=== PATIENT | female | born 1950 | race Caucasian/White ===

== ENCOUNTER → 2016-10-16 | Outpatient (CLI) | payer OTHER ==
[~2016-10-16] MED LIST: ALBU1AER9 INH; ALPR0.5T PO; ASPI81TA28 PO; BUPR-83 PO; CEPH500C2 PO; CHOL200010 PO; CYAN3INJ SC; ESCI1TAB10 PO; FLUT50SP14 NAE; HYDR12.56 PO; HYDR25TA4 PO; LEVO125T5 PO; MGN PO; MONT1TAB3 PO
[2016-10-16 10:51] LABS: HEMATOCRIT 41.1 % (37-47); MEAN CELL VOLUME 91.1 fL (80-100); MEAN CORPUSCULAR HEMOGLOBIN 28.8 pg (25-34); MEAN CORPUSCULAR HGB CONC 31.6 g/dl (32-36); MEAN PLATELET VOLUME 9.8 fL (7.4-10.4); PLATELET COUNT 212 K/uL (130-400); RED BLOOD COUNT 4.51 M/uL (4.2-5.4); WHITE BLOOD COUNT 6.27 K/uL (4.8-10.8)
== END | disposition home or self-care (01) ==
LOC: C.LABBC 08:31
PROVIDERS: ATTEND Orthopaedic Surgery Sports Medicine
DX: M17.0 Bilateral primary osteoarthritis of knee (principal); T84.84XA Pain due to internal orthopedic prosthetic devices, implants and grafts, initial encounter; X58.XXXA Exposure to other specified factors, initial encounter

== ENCOUNTER → 2016-10-30 | Outpatient (CLI) | payer OTHER ==
--- NOTE | 2016-10-30 15:40 | ECHOCARDIOGRAM REPORT ---
*NOTICE TO RECEIVING REPUBLICAN AGENCY This information is strictly Confidential and protected under [place] law. [place] law prohibits you from making any further disclosure of this information unless further disclosure is expressly permitted by the written consent of the person to whom it pertains or is authorized by law. A general authorization for the release of medical or other information is not sufficient for this purpose. Hospital accepts no responsibility if the information is made available to any other person, INCLUDING THE PATIENT. Interpretation Summary * Name: VALERIANO LEON Study Date: 10/30/2016 01:37 PM BP: 143/71 mmHg * Patient Location: [facility] HR: 67 * : 1950 (M/d/yyyy) Gender: Female Height: 56 in * Age: 66 yrs Ethnicity: [place] Weight: 305 lb * Ordering Physician: Roxanna Bentley * Referring Physician: Danuta Connelly * Performed By: Simona Lincoln RDCS * * Reason For Study: CHEST PAIN, PALPITATIONS, SOB * BSA: 2.1 m2 * The study was technically adequate. * Compared to prior study, there is no significant change. * -- Conclusions -- * Ejection Fraction = 55-60%. * There is mild concentric left ventricular hypertrophy. * Grade I diastolic dysfunction, (abnormal relaxation pattern). * There is trace mitral regurgitation. Procedure Details * A complete two-dimensional transthoracic echocardiogram was performed (2D, M-mode, Doppler and color flow Doppler). Left Ventricle * The left ventricle is normal in size. * There is mild concentric left ventricular hypertrophy. * Ejection Fraction = 55-60%. * Left ventricular systolic function is normal. * The left ventricular wall motion is normal. Right Ventricle * The right ventricle is normal size. * The right ventricular systolic function is normal as assessed by tricuspid annular plane systolic excursion (TAPSE) (normal >1.5 cm). Atria * The left atrium is mildly dilated. * Right atrial size is normal. * There is no evidence of atrial septal defect, but resolution does not allow assessment for a patent foramen ovale. Mitral Valve * There is moderate mitral annular calcification. * There is no mitral valve stenosis. * There is trace mitral regurgitation. Tricuspid Valve * The tricuspid valve is not well visualized. * There is no tricuspid stenosis. * Significant tricuspid regurgitation is absent. Aortic Valve * The aortic valve is trileaflet. * Aortic stenosis is absent. * There is no significant aortic regurgitation. Pulmonic Valve * The pulmonary valve is not well seen, but the Doppler examination is normal without significant regurgitation or stenosis. Great Vessels * The aortic root is normal size. Pericardium/Pleural * There is no pericardial effusion. Great Vessels * Normal inferior vena cava diameter and respiratory variation suggests normal central venous pressure. Left Ventricular Diastolic Function * Grade I diastolic dysfunction, (abnormal relaxation pattern). MMode 2D Measurements and Calculations IVSd 1.2 cm IVSs 1.9 cm LVIDd 4.5 cm LVIDs 3.1 cm LVPWd 1.3 cm LVPWs 2.8 cm IVS/LVPW 0.91 FS 31.3 % EDV(Teich) 92.4 ml ESV(Teich) 37.7 ml EF(Teich) 59.2 % EDV(cubed) 91.1 ml ESV(cubed) 29.6 ml EF(cubed) 67.5 % % IVS thick 60.7 % % LVPW thick 110.9 % LV mass(C)d 209.9 grams LV mass(C)dI 98.8 grams/m\S\2 LV mass(C)s 365.0 grams LV mass(C)sI 171.8 grams/m\S\2 SV(Teich) 54.7 ml SI(Teich) 25.8 ml/m\S\2 SV(cubed) 61.5 ml SI(cubed) 29.0 ml/m\S\2 LA dimension 3.5 cm LVAd ap4 30.5 cm\S\2 LVLd ap4 7.4 cm EDV(MOD-sp4) 105.0 ml LVAs ap4 18.5 cm\S\2 LVLs ap4 6.4 cm ESV(MOD-sp4) 45.2 ml EF(MOD-sp4) 57.0 % LVAd ap2 26.2 cm\S\2 LVLd ap2 7.1 cm EDV(MOD-sp2) 82.6 ml LVAs ap2 15.1 cm\S\2 LVLs ap2 6.1 cm ESV(MOD-sp2) 32.8 ml EF(MOD-sp2) 60.3 % SV(MOD-sp4) 59.8 ml SI(MOD-sp4) 28.2 ml/m\S\2 SV(MOD-sp2) 49.8 ml SI(MOD-sp2) 23.4 ml/m\S\2 Doppler Measurements and Calculations MV E max genaro 100.4 cm/sec MV A max genaro 107.2 cm/sec MV E/A 0.94 MV dec time 0.20 sec Ao V2 max 124.1 cm/sec Ao max PG 6.2 mmHg Ao max PG (full) 1.5 mmHg LV V1 max PG 4.6 mmHg LV V1 max 107.7 cm/sec
== END | disposition home or self-care (01) ==
LOC: C.CPL 13:27
PROVIDERS: ATTEND Family Medicine
DX: R06.02 Shortness of breath (principal); R07.9 Chest pain, unspecified; R00.2 Palpitations

== ENCOUNTER → 2016-11-23 | Outpatient (CLI) | payer OTHER ==
[2016-11-23 12:45] LABS: POTASSIUM 3.9 mmol/L (3.5-5.1)
== END | disposition home or self-care (01) ==
LOC: C.LAB 11:08
PROVIDERS: ATTEND Physician Assistant
DX: I10 Essential (primary) hypertension (principal); K21.9 Gastro-esophageal reflux disease without esophagitis; C03.9 Malignant neoplasm of gum, unspecified

== ENCOUNTER → 2017-04-20 | Outpatient (CLI) | payer OTHER ==
[2017-04-20 13:32] LABS: MEAN CELL VOLUME 89.1 fL (80-100); MEAN CORPUSCULAR HEMOGLOBIN 29.1 pg (25-34); MEAN CORPUSCULAR HGB CONC 32.7 g/dl (32-36); MEAN PLATELET VOLUME 10.6 fL (7.4-10.4); PLATELET COUNT 189 K/uL (130-400); WHITE BLOOD COUNT 6.22 K/uL (4.8-10.8)
== END | disposition home or self-care (01) ==
LOC: C.LABBC 09:56
PROVIDERS: ATTEND Orthopaedic Surgery Sports Medicine
DX: T84.89XA Other specified complication of internal orthopedic prosthetic devices, implants and grafts, initial encounter (principal); M17.10 Unilateral primary osteoarthritis, unspecified knee; Y83.1 Surgical operation with implant of artificial internal device as the cause of abnormal reaction of the patient, or of later complication, without mention of misadventure at the time of the procedure

== ENCOUNTER → 2017-10-16 | Outpatient (CLI) | payer OTHER ==
[2017-10-16 13:31] LABS: ALBUMIN 3.3 gm/dl (3.4-5.0); ALT/SGPT 23 U/L (12-78); AST/SGOT 20 U/L (15-37); BLOOD UREA NITROGEN 21 mg/dl (7-18); CALCIUM 8.5 mg/dl (8.5-10.1); CARBON DIOXIDE 31 mmol/L (21-32); GLUCOSE 92 mg/dl (70-99); POTASSIUM 3.8 mmol/L (3.5-5.1); SODIUM 137 mmol/L (136-145)
[2017-10-16 13:33] LABS: ALKALINE PHOSPHATASE 153 U/L (45-117)
== END | disposition home or self-care (01) ==
LOC: C.LAB 12:00
PROVIDERS: ATTEND Physician Assistant
DX: E87.6 Hypokalemia (principal); D51.9 Vitamin B12 deficiency anemia, unspecified; E16.2 Hypoglycemia, unspecified; E55.9 Vitamin D deficiency, unspecified

== ENCOUNTER 2017-10-27 11:18 | Observation (INO) | payer OTHER ==
[~2017-10-27] VITALS: Ht 160 cm; Wt 137.2 kg
[2017-10-27] MEDS ORDERED: ASPIRIN 324 MG CHEW PO STA (11:33)
--- NOTE | 2017-10-27 12:00 | DIAGNOSTIC IMAGING REPORT ---
CHEST ONE VIEW PORTABLE CLINICAL HISTORY: 67 years-old Female presenting with cp. TECHNIQUE: Portable upright AP view of the chest was obtained. COMPARISON: 09/26/2011. FINDINGS: Atherosclerosis of the aortic arch. Mild tortuosity of the descending thoracic aorta, unchanged. Cardiac silhouette top normal in size. Mild pulmonary vascular prominence. No focal opacity. No large effusion or pneumothorax. Degenerative changes of the shoulders an spine. Upper abdomen normal. IMPRESSION: 1. Mild pulmonary vascular prominence could suggest mild volume overload. No other evidence of acute cardiopulmonary disease. Electronically signed by: Derick Baltazar M.D. 10/27/2017 11:58 AM Dictated Date/Time: 10/27/2017 11:57 AM
[2017-10-27 12:01] LABS: BASO % 0.5 %; BASO ABS # 0.03 K/uL (0-0.2); EOS % 3.7 %; EOS ABS # 0.22 K/uL (0-0.5); HEMATOCRIT 39.7 % (37-47); HEMOGLOBIN 13.1 g/dL (12.0-16.0); IG# 0.01 K/uL (0.00-0.02); LYMPH ABS # 1.65 K/uL (1.2-3.4); MEAN CELL VOLUME 88.2 fL (80-100); MEAN CORPUSCULAR HEMOGLOBIN 29.1 pg (25-34); MEAN PLATELET VOLUME 9.7 fL (7.4-10.4); MONO % 5.8 %; MONO ABS # 0.34 K/uL (0.11-0.59); NEUT % 61.8 %; NEUT ABS # 3.65 K/uL (1.4-6.5); PLATELET COUNT 192 K/uL (130-400); RED CELL DISTRIBUTION WIDTH SD 45.5 fL (36.4-46.3)
[2017-10-27 12:10] LABS: PTT PATIENT 25.2 SECONDS (21.0-31.0)
[2017-10-27 12:16] LABS: CALCIUM 8.8 mg/dl (8.5-10.1); CREATININE 0.74 mg/dl (0.60-1.20); POTASSIUM 4.2 mmol/L (3.5-5.1)
[2017-10-27] MEDS ORDERED: FLUT0.15 NAE (12:24)
[2017-10-27] MEDS ORDERED: ALBU18002 INH (12:24)
[2017-10-27] MEDS ORDERED: CYNI1000 SC (12:24)
[2017-10-27] MEDS ORDERED: MAGN250T8 PO (12:24)
[2017-10-27] MEDS ORDERED: FURO20TA PO (12:24)
[2017-10-27] MEDS ORDERED: BUPRTAB PO (12:24)
[2017-10-27 13:36] VITALS: O2SAT 96; Ht 160 cm; Wt 137.2 kg
--- NOTE | 2017-10-27 13:51 | History and Physical ---
History & Physical Date & Time of Service: October 27, 2017 at 13:51 Chief Complaint: Chest Pain Primary Care Physician: Francie Longoria.Juliann PA-C History of Present Illness Source: patient This is a 67-year-old female with past medical history of high blood pressure hyperlipidemia type 2 diabetes, presented plane of chest pain started since yesterday, heart pain feels like muscle spasm with radiation to left shoulder blade and left-sided neck Not associated to any active activity Dizzy spell or lightheadedness No prior history of coronary artery disease No family history of premature CAD, patient is non-smoker In the ER patient was chest pain-free Twelve-lead EKG shows no evidence of any acute ischemic Initial troponin negative Patient will be observed overnight in telemetry for cardiac workup Past Medical/Surgical History Medical Problems: (1) Anxiety (2) Anxiety (3) Anxiety State Nos (4) Body Mass Index 50.0-59.9, Adult (5) Chest pain (6) Dehydration (7) Diab Nenita Wo Compl, Type Ii Or Unspec Type, Not Uncntrld (8) Gastroenteritis (9) History of left knee replacement (10) Hyperlipidemia Nec/Nos (11) Hypertension Nos (12) Hypothyroidism Nos (13) Left knee pain (14) Morbid Obesity Social History Smoking Status: Never Smoker Drug Use: none Marital Status: Housing status: lives with family Immunizations History of Influenza Vaccine: Yes Influenza Vaccine Date: Mar 30, 2009 History of Tetanus Vaccine?: Yes Tetanus Immunization Date: Nov 24, 2007 History of Pneumococcal: Yes Pneumococcal Date: Jun 16, 2009 History of Hepatitis B Vaccine: No Multi-Drug Resistant Organisms History of MDRO: No Allergies Coded Allergies: Penicillins (Verified Allergy, Mild, SWELLING BUT NO RESPIRATORY PROBLEMS , 10/27/17) Gabapentin (Verified Allergy, Unknown, UNKNOWN, 10/27/17) PER PT CAUSED HER TO FEEL LIGHTHEADED. Tramadol (Verified Allergy, Unknown, SWELLING, 10/27/17) Zoster Vaccine Live (Verified Allergy, Unknown, UNKNOWN, 10/27/17) CAUSED REDNESS/SWELLING OF INJECTION SITE Home Medications Scheduled Alprazolam (Xanax), 0.5 MG PO QAM Aspirin (Aspirin Ec), 81 MG PO DAILY Bupropion Hcl (Wellbutrin Xl), 1 TAB PO DAILY Cholecalciferol (Vitamin D), 2,000 UNIT PO QAM Cyanocobalamin (Cyanocobalamin), 1 DOSE SC MONTHLY Escitalopram Oxalate (Lexapro), 20 MG PO QAM Furosemide (Lasix), 20 MG PO DAILY Levothyroxine Sodium (Levothyroxine Sodium), 125 MCG PO DAILY Magnesium Oxide (Mg Supplement (Magnesium), 250 MG PO DAILY Scheduled PRN Albuterol Sulfate (Proair Respiclick), 2 PUFFS INH DAILY PRN for Wheezing Fluticasone Propionate (Nasal) (Flonase Allergy Relief), 2 SPRAYS AMELIA DAILY PRN for SEASONAL ALLERGIES Montelukast Sodium (Singulair), 10 MG PO DAILY PRN for SEASONAL ALLERGIES Review of Systems Constitutional: + weakness, + fatigue Respiratory: No cough, No sputum, No wheezing, No shortness of breath, No dyspnea on exertion, No dyspnea at rest, No hemoptysis, No problem reported Cardiovascular: + chest pain (Intermittent sharp/spasm on the left chest wall radiating to left arm and left neck), No orthopnea, No PND, No edema, No claudication, No palpitations, No problem reported Abdomen: No pain, No nausea, No vomiting, No diarrhea, No constipation, No GI bleeding, No problem reported Musculoskeletal: + swelling (Chronic bilateral ankle swelling), No joint pain, No muscle pain, No calf pain, No problem reported Genitourinary - Female: No dysuria, No urinary frequency, No urinary urgency, No urinary incontinence, No urinary retention, No hematuria, No dysmenorrhea, No menorrhagia, No metrorrhagia, No rash, No vaginal bleeding, No vaginal discharge, No vaginal itching, No vulvodynia, No , No problem reported Neurologic: No memory loss, No paralysis, No weakness, No numbness/tingling, No vertigo, No balance problems, No problem reported Psychiatric: + anxiety Physical Exam Vital Signs Date Time Temp Pulse Resp B/P (MAP) Pulse Ox O2 Delivery O2 Flow Rate FiO2 10/27/17 13:09 64 18 172/82 96 Room Air 10/27/17 12:09 64 10/27/17 11:50 77 18 147/82 95 Room Air 10/27/17 11:36 98 Room Air 10/27/17 11:22 36.6 83 22 141/75 98 Room Air General Appearance: no apparent distress, + mild distress Head: atraumatic Eyes: normal inspection, PERRL, EOMI, sclerae normal ENT: normal ENT inspection Neck: thyroid normal, no JVD, no carotid bruits, trachea midline Respiratory/Chest: chest non-tender, lungs clear, normal breath sounds, no respiratory distress Cardiovascular: regular rate, rhythm, no JVD, no murmur, normal peripheral pulses Abdomen/GI: normal bowel sounds, non tender, soft Extremities/Musculoskelatal: + pedal edema (Trace bilateral pedal edema) Neurologic/Psych: no motor/sensory deficits, alert, normal mood/affect, oriented x 3 Diagnostics Laboratory Results Results Past 24 Hours Test 10/27/17 11:45 10/27/17 11:52 10/27/17 13:21 Range/Units White Blood Count 5.90 4.8-10.8 K/uL Red Blood Count 4.50 4.2-5.4 M/uL Hemoglobin 13.1 12.0-16.0 g/dL Hematocrit 39.7 37-47 % Mean Corpuscular Volume 88.2 80-100 fL Mean Corpuscular Hemoglobin 29.1 25-34 pg Mean Corpuscular Hemoglobin Concent 33.0 32-36 g/dl Platelet Count 192 130-400 K/uL Mean Platelet Volume 9.7 7.4-10.4 fL Neutrophils (%) (Auto) 61.8 % Lymphocytes (%) (Auto) 28.0 % Monocytes (%) (Auto) 5.8 % Eosinophils (%) (Auto) 3.7 % Basophils (%) (Auto) 0.5 % Neutrophils # (Auto) 3.65 1.4-6.5 K/uL Lymphocytes # (Auto) 1.65 1.2-3.4 K/uL Monocytes # (Auto) 0.34 0.11-0.59 K/uL Eosinophils # (Auto) 0.22 0-0.5 K/uL Basophils # (Auto) 0.03 0-0.2 K/uL RDW Standard Deviation 45.5 36.4-46.3 fL RDW Coefficient of Variation 14.0 11.5-14.5 % Immature Granulocyte % (Auto) 0.2 % Immature Granulocyte # (Auto) 0.01 0.00-0.02 K/uL Prothrombin Time 10.4 9.0-12.0 SECONDS Prothromb Time International Ratio 1.0 0.9-1.1 Activated Partial Thromboplast Time 25.2 21.0-31.0 SECONDS Partial Thromboplastin Ratio 1.0 Sodium Level 139 136-145 mmol/L Potassium Level 4.2 3.5-5.1 mmol/L Chloride Level 102 98-107 mmol/L Carbon Dioxide Level 34 21-32 mmol/L Anion Gap 3.0 3-11 mmol/L Blood Urea Nitrogen 21 7-18 mg/dl Creatinine 0.74 0.60-1.20 mg/dl Est Creatinine Clear Calc Drug Dose 100.0 ml/min Estimated GFR () 97.2 Estimated GFR (Non- 83.8 BUN/Creatinine Ratio 28.8 10-20 Random Glucose 93 70-99 mg/dl Calcium Level 8.8 8.5-10.1 mg/dl Bedside Troponin I < 0.030 0-0.045 ng/ml Diagnostic Radiology PORTABLE CHEST X-RAY impression: Mild pulmonary vascular prominence could suggest mild volume overload: No other evidence of acute cardiopulmonary disease EKG Twelve-lead EKG: Normal sinus rhythm no ST-T wave change Impression Assessment and Plan This 67-year-old female with history of depression, anxiety, dyslipidemia, status post gastric bypass/history of uterine cancer on remission, history of factor V Leiden mutation Presented to ER with complaint of intermittent sharp chest pain CHEST PAIN/ATYPICAL FOR ANGINA -Presents with sharp intermittent chest pain, not associated with nausea diaphoresis or dizziness spell Initial cardiac workup negative Had a dobutamine cardiac stress test done in 09/09/2008: Was normal study knows evidence of stress-induced ischemia Resting echo on 10/30/2016: EF of 55-60%, left ventricular systolic function is normal, the left ventricle wall motion is normal Ordered for serial cardiac markers, resting echo in the morning Continue aspirin 81 mg daily Patient been chest pain-free since arrival to the ED Will benefit with outpatient cardiac dobutamine stress test HYPOTHYROIDISM Continue levothyroxine Ordered for TSH level HYPERLIPIDEMIA Diet-controlled Fasting lipid panel in a.m. MORBID OBESITY BMI more than 53 History of gastric bypass surgery, patient regained weight after Counseled for exercise and heart healthy diet ANXIETY DISORDER Continue outpatient dose of alprazolam DEPRESSION Continue on SSRI escitalopram/Lexapro 20 mg daily HISTORY OF FACTOR V LEIDEN MUTATION No prior history of blood clots or thromboembolic Charge from hematology service as no further follow-up needed Full code DVT prophylaxis Moderate to high risk secondary to body habitus Subcu heparin Is encouraged to ambulate Disposition Expected to be discharged home if initial cardiac markers are negative Will need outpatient dobutamine cardiac stress test Advanced Directives Existing Living Will: No Existing Power of Information Services Assistant: No Resuscitation Status FULL RESUSCITATION VTE Prophylaxis Risk Level: Moderate Given or contraindicated: Unfractionated heparin SQ
[2017-10-27] MEDS ORDERED: FUROSEMIDE 20 MG TAB PO ONE (13:52)
[2017-10-27] MEDS ORDERED: METOPROLOL TARTRATE 25 MG TAB PO ONE (13:55)
[2017-10-27] MEDS ORDERED: MAGNESIUM HYDROXIDE SUSP 30 ML UDC PO PRN (14:00)
[2017-10-27] MEDS ORDERED: ALBUTEROL HFA 8 GM INHALER INH PRN (14:00)
[2017-10-27] MEDS ORDERED: NITROGLYCERIN 0.4 MG SL PER TAB CHARGE SL PRN (14:00)
[2017-10-27] MEDS ORDERED: MONTELUKAST SOD 10 MG TAB PO PRN (14:00)
[2017-10-27] MEDS ORDERED: ACETAMINOPHEN 325 MG TAB PO PRN (14:00)
[2017-10-27] MEDS ORDERED: POLYETHYLENE (MIRALAX) 17 GM PACK PO PRN (14:00)
[2017-10-27] MEDS ORDERED: ONDANSETRON INJ 2 MG/ML 2 ML VIAL IV PRN (14:00)
[2017-10-27] MEDS ORDERED: FLUTICASONE PROPIONATE NA SPR 16 GM BTL NAE PRN (14:00)
[2017-10-27] MEDS ORDERED: ALUMINUM/MAGNESIUM/SIMETH (MAALOX MAX) 30 ML UDC PO PRN (14:00)
[2017-10-27] MEDS ORDERED: IV FLUIDS COMPLETED PRN (14:15)
[2017-10-27 14:34] VITALS: BP 154/77; PULSE 69; TEMP 36.6; O2SAT 95
[2017-10-27 15:33] VITALS: BP 124/71; PULSE 69; TEMP 36.7; O2SAT 97
--- NOTE | 2017-10-27 16:36 | EMERGENCY ROOM VISIT NOTE ---
History Report prepared by Juan: Raiza Rodriguez Under the Supervision of: Dr. Larry Robles M.D. First contact with patient: 11:20 Chief Complaint: CHEST PAIN Stated Complaint: CHEST PAIN History of Present Illness The patient is a 67 year old female who presents to the Emergency Room with complaints of intermittent chest pain beginning yesterday afternoon. She describes her pain as "a mini muscle spasm" and it radiates to her shoulder blade and left neck. Lying down and being inactive alleviates her pain and it does not hurt if she moves her arm or shoulder. She has a dry cough and nausea but denies any SOB, sweating, nausea, abdominal pain, or urinary symptoms. The patient also has bilateral leg swelling but states it is chronic. She denies any leg pain. Source of History: patient Onset: yesterday afternoon Position: chest Symptom Intensity: mild Quality: other ("a mini muscle spasm") Timing: intermittent Modifying Factors (Relieving): other (Lying down and being inactive ) Associated Symptoms: + cough (dry), + nausea, No diaphoresis, No SOB, No abdominal pain, No urinary symptoms Review of Systems See HPI for pertinent positives & negatives. A total of 10 systems reviewed and were otherwise negative. Past Medical & Surgical Medical Problems: (1) Anxiety State Nos (2) Body Mass Index 50.0-59.9, Adult (3) Chest pain (4) Diab Nenita Wo Compl, Type Ii Or Unspec Type, Not Uncntrld (5) Hyperlipidemia Nec/Nos (6) Hypertension Nos (7) Hypothyroidism Nos (8) Morbid Obesity Family History No pertinent family history Social History Smoking Status: Never Smoker Alcohol Use: none Drug Use: none Marital Status: Current/Historical Medications Scheduled Alprazolam (Xanax), 0.5 MG PO QAM Aspirin (Aspirin Ec), 81 MG PO DAILY Bupropion Hcl (Wellbutrin Xl), 1 TAB PO DAILY Cholecalciferol (Vitamin D), 2,000 UNIT PO QAM Cyanocobalamin (Cyanocobalamin), 1 DOSE SC MONTHLY Escitalopram Oxalate (Lexapro), 20 MG PO QAM Furosemide (Lasix), 20 MG PO DAILY Levothyroxine Sodium (Levothyroxine Sodium), 125 MCG PO DAILY Magnesium Oxide (Mg Supplement (Magnesium), 250 MG PO DAILY Scheduled PRN Albuterol Sulfate (Proair Respiclick), 2 PUFFS INH DAILY PRN for Wheezing Fluticasone Propionate (Nasal) (Flonase Allergy Relief), 2 SPRAYS AMELIA DAILY PRN for SEASONAL ALLERGIES Montelukast Sodium (Singulair), 10 MG PO DAILY PRN for SEASONAL ALLERGIES Allergies Coded Allergies: Penicillins (Verified Allergy, Mild, SWELLING BUT NO RESPIRATORY PROBLEMS , 10/27/17) Gabapentin (Verified Allergy, Unknown, UNKNOWN, 10/27/17) PER PT CAUSED HER TO FEEL LIGHTHEADED. Tramadol (Verified Allergy, Unknown, SWELLING, 10/27/17) Zoster Vaccine Live (Verified Allergy, Unknown, UNKNOWN, 10/27/17) CAUSED REDNESS/SWELLING OF INJECTION SITE Physical Exam Vital Signs Date Time Temp Pulse Resp B/P (MAP) Pulse Ox O2 Delivery O2 Flow Rate FiO2 10/27/17 13:18 78 17 10/27/17 13:10 172/82 10/27/17 13:09 64 18 172/82 96 Room Air 10/27/17 12:48 67 16 97 10/27/17 12:18 66 14 99 10/27/17 12:09 64 10/27/17 11:50 77 18 147/82 95 Room Air 10/27/17 11:38 147/82 10/27/17 11:36 98 Room Air 10/27/17 11:22 36.6 83 22 141/75 98 Room Air Physical Exam Constitutional: Vital signs reviewed. Eyes: Pupils are equal round reactive to light. Conjunctiva are noninjected. ENT: Pharynx is clear without erythema or exudate. Mucous membranes are moist. Neck supple without meningeal signs. Respiratory: Clear to auscultation bilaterally. Breath sounds are equal bilaterally. Cardiovascular: Regular rate and rhythm. No rubs or gallops. GI: Soft, nondistended and nontender. Bowel sounds are present. Musculoskeletal: No peripheral edema. No lower extremity tenderness. Integumentary: No cyanosis. Neurological: The patient is awake and alert. No focal deficits. Psychiatric: Normal affect. Medical Decision & Procedures ER Provider Diagnostic Interpretation: Radiology results as stated below per my review and the radiologist's interpretation: CHEST ONE VIEW PORTABLE CLINICAL HISTORY: 67 years-old Female presenting with cp. TECHNIQUE: Portable upright AP view of the chest was obtained. COMPARISON: 09/26/2011. FINDINGS: Atherosclerosis of the aortic arch. Mild tortuosity of the descending thoracic aorta, unchanged. Cardiac silhouette top normal in size. Mild pulmonary vascular prominence. No focal opacity. No large effusion or pneumothorax. Degenerative changes of the shoulders an spine. Upper abdomen normal. IMPRESSION: 1. Mild pulmonary vascular prominence could suggest mild volume overload. No other evidence of acute cardiopulmonary disease. Electronically signed by: Derick Baltazar M.D. 10/27/2017 11:58 AM Laboratory Results 10/27/17 11:45 Red Blood Count 4.50, Mean Corpuscular Volume 88.2, Mean Corpuscular Hemoglobin 29.1, Mean Corpuscular Hemoglobin Concent 33.0, Mean Platelet Volume 9.7, Neutrophils (%) (Auto) 61.8, Lymphocytes (%) (Auto) 28.0, Monocytes (%) (Auto) 5.8, Eosinophils (%) (Auto) 3.7, Basophils (%) (Auto) 0.5, Neutrophils # (Auto) 3.65, Lymphocytes # (Auto) 1.65, Monocytes # (Auto) 0.34, Eosinophils # (Auto) 0.22, Basophils # (Auto) 0.03 10/27/17 11:45 Test 10/27/17 11:45 10/27/17 11:52 White Blood Count 5.90 K/uL (4.8-10.8) Red Blood Count 4.50 M/uL (4.2-5.4) Hemoglobin 13.1 g/dL (12.0-16.0) Hematocrit 39.7 % (37-47) Mean Corpuscular Volume 88.2 fL (80-100) Mean Corpuscular Hemoglobin 29.1 pg (25-34) Mean Corpuscular Hemoglobin Concent 33.0 g/dl (32-36) Platelet Count 192 K/uL (130-400) Mean Platelet Volume 9.7 fL (7.4-10.4) Neutrophils (%) (Auto) 61.8 % Lymphocytes (%) (Auto) 28.0 % Monocytes (%) (Auto) 5.8 % Eosinophils (%) (Auto) 3.7 % Basophils (%) (Auto) 0.5 % Neutrophils # (Auto) 3.65 K/uL (1.4-6.5) Lymphocytes # (Auto) 1.65 K/uL (1.2-3.4) Monocytes # (Auto) 0.34 K/uL (0.11-0.59) Eosinophils # (Auto) 0.22 K/uL (0-0.5) Basophils # (Auto) 0.03 K/uL (0-0.2) RDW Standard Deviation 45.5 fL (36.4-46.3) RDW Coefficient of Variation 14.0 % (11.5-14.5) Immature Granulocyte % (Auto) 0.2 % Immature Granulocyte # (Auto) 0.01 K/uL (0.00-0.02) Prothrombin Time 10.4 SECONDS (9.0-12.0) Prothromb Time International Ratio 1.0 (0.9-1.1) Activated Partial Thromboplast Time 25.2 SECONDS (21.0-31.0) Partial Thromboplastin Ratio 1.0 D-Dimer 550 ug/L FEU (0-500) Anion Gap 3.0 mmol/L (3-11) Est Creatinine Clear Calc Drug Dose 100.0 ml/min Estimated GFR () 97.2 Estimated GFR (Non- 83.8 BUN/Creatinine Ratio 28.8 (10-20) Calcium Level 8.8 mg/dl (8.5-10.1) Pro-B-Type Natriuretic Peptide 283 pg/ml (0-900) Thyroid Stimulating Hormone (TSH) 0.383 uIu/ml (0.300-4.500) Bedside Troponin I < 0.030 ng/ml (0-0.045) Laboratory results as reviewed by me. Medications Administered Medications (Trade) Dose Ordered Sig/Jerome Route Start Time Stop Time Status Last Admin Dose Admin Aspirin (Aspirin Chew) 324 mg NOW STAT PO 10/27/17 11:33 10/27/17 11:35 DC 10/27/17 11:43 324 MG ECG Per My Interpretation Indication: chest pain Rate (beats per minute): 82 Rhythm: normal sinus Findings: other (no ST elevations, no PVCs ) ED Course 1125: The patient was evaluated in room C7. A complete history and physical exam was performed. 1133: Ordered Aspirin 324 mg PO 1232: She is not having any chest discomfort. I recommended hospitalization 1229: I discussed the patient's case with Dr. Waldrop, [facility]ist. Medical Decision This is a 67-year-old female presents with chest pain. Differential diagnosis includes unstable angina, [place], pleurisy, pneumonia, GERD. I did perform a limited focused review of portions of the patient's old chart on the electronic medical record. The patient has had no recent pertinent visits to this hospital. I did evaluate the patient as noted above. Patient is presenting with chest pain. She states it is worse with exertion. IV access was established. The patient was placed on a continuous monitor car operator. I did order and personally review the patient's 12-lead EKG and chest x-ray as described above. Her twelve -lead EKG does not demonstrate any acute ischemia. I did order and review the patient's blood work as noted in the electronic medical record. Initial troponin is negative. I did discuss the test results with the patient. I did recommend hospitalization for repeat cardiac enzymes and further evaluation. I did treat patient with aspirin. I did discuss case with the hospitalist and trimming caser. Medication Reconcilliation Current Medication List: was personally reviewed by me Blood Pressure Screening Patient's blood pressure: Elevated blood pressure Blood pressure disposition: Referred to PCP Consults Time Called: 1237 Consulting Physician: Thomas Scruggs Returned Call: 1229 I discussed the patient's case with Thomas Scruggs. She will further evaluate the patient. Impression Primary Impression: Exertional chest pain Scribe Attestation The scribe's documentation has been prepared under my direct and personally reviewed by me in its entirety. I confirm that the note above accurately reflects all work, treatment, procedures, and medical decision making performed by me. Departure Information Dispostion Being Evaluated By Hospitalist (Thomas Scruggs) Referrals No Doctor, Assigned (PCP) Patient Instructions My [facility]
[2017-10-27] MEDS: HEPARIN SOD 5000 UNIT/0.5 ML CARP SQ SCH ×2 (16:47→22:37)
[2017-10-27 19:45] VITALS: BP 121/70; PULSE 56; TEMP 37; O2SAT 97
[2017-10-27 23:34] VITALS: BP 121/67; PULSE 64; TEMP 36.8; O2SAT 94
[2017-10-28 03:09] VITALS: BP 123/76; PULSE 61; TEMP 36.8; O2SAT 93
[2017-10-28] MEDS ORDERED: LEVOTHYROXINE 125 MCG TAB PO SCH (06:00)
[2017-10-28] MEDS: HEPARIN SOD 5000 UNIT/0.5 ML CARP SQ SCH ×2 (06:33→14:00)
[2017-10-28 06:43] VITALS: BP 134/78; PULSE 63; TEMP 36.7; O2SAT 95
[2017-10-28] MEDS ORDERED: PERFLUTREN LIPID MICROSPHERE (DEFINITY) IV ONE (07:14)
[2017-10-28] MEDS ORDERED: ALPRAZOLAM 0.5 MG TAB PO SCH (09:00)
[2017-10-28] MEDS ORDERED: ASPIRIN 81 MG ECTAB PO SCH (09:00)
[2017-10-28] MEDS ORDERED: FUROSEMIDE 20 MG TAB PO SCH (09:00)
[2017-10-28] MEDS ORDERED: MAGNESIUM OXIDE 400 MG TAB PO SCH (09:00)
[2017-10-28] MEDS ORDERED: CHOLECALCIFEROL 1000 INTER.UNIT TAB PO SCH (09:00)
[2017-10-28] MEDS ORDERED: METOPROLOL TARTRATE 25 MG TAB PO SCH (09:00)
[2017-10-28] MEDS ORDERED: BuPROPion XL 150 MG TABCR PO SCH (09:00)
[2017-10-28] MEDS ORDERED: ESCITALOPRAM OXALATE 20 MG TAB PO SCH (09:00)
--- NOTE | 2017-10-28 09:10 | ECHOCARDIOGRAM REPORT ---
*NOTICE TO RECEIVING [facility] [employer] This information is strictly Confidential and protected under [place] law. [place] law prohibits you from making any further disclosure of this information unless further disclosure is expressly permitted by the written consent of the person to whom it pertains or is authorized by law. A general authorization for the release of medical or other information is not sufficient for this purpose. Hospital accepts no responsibility if the information is made available to any other person, INCLUDING THE PATIENT. Interpretation Summary * Name: VALERIANO LEON Study Date: 10/28/2017 06:49 AM BP: 123/76 mmHg * Patient Location: C.2T\S\S229\S\1 HR: 61 * : 1950 (M/d/yyyy) Gender: Female Height: 63 in * Age: 67 yrs Ethnicity: CA Weight: 299 lb * Ordering Physician: Sandra Waldrop * Performed By: Pearl Nichols RDCS * * Reason For Study: CHEST PAIN * BSA: 2.3 m2 * -- Conclusions -- * The left ventricle is normal in size. * There is mild concentric left ventricular hypertrophy. * The left ventricular wall motion is normal. * Ejection Fraction = 55-60%. * Diastolic dysfunction, Grade II (pseudonormalization pattern). * Aortic valve sclerosis moderate, without significant aortic valvular stenosis. * There is mild to moderate mitral annular calcification with focal calcification of the posterior annulus. * The mitral valve leaflets are mildly thickened * There is no mitral valve stenosis. * There is trace mitral regurgitation. Procedure Details * A complete two-dimensional transthoracic echocardiogram was performed (2D, M-mode, Doppler and color flow Doppler). * The study was technically difficult. * There were technical limitations due to patient'sbody habitus * A contrast injection of Definity was performed to improve assessment of LV function. * Contrast was injected into an intravenous site in the right arm. * One vial of Definity ultrasound contrast was diluted in normal saline to a total volume of 10 ml. A total of '3' ml of solution was administered during imaging. * Lot # [id number] of Definity utilized for procedure. * Expiration date 08/13. * The attending nurse who injected the contrast agent was KERVIN TARNER, RN. Left Ventricle * The left ventricle is normal in size. * There is mild concentric left ventricular hypertrophy. * Ejection Fraction = 55-60%. * Left ventricular systolic function is normal. * The left ventricular wall motion is normal. Right Ventricle * The right ventricle is normal in size and function. Atria * The left atrial size is normal. * Right atrial size is normal. * No ASD detected; PFO is not assessed. Mitral Valve * There is mild to moderate mitral annular calcification with focal calcification of the posterior annulus. The mitral valve leaflets are mildly thickened * There is no mitral valve stenosis. * There is trace mitral regurgitation. Tricuspid Valve * The tricuspid valve anatomy is normal. * There is no tricuspid stenosis. * There is trace tricuspid regurgitation. * Doppler findings do not suggest pulmonary hypertension. Aortic Valve * The aortic valve is trileaflet. * Aortic valve sclerosis moderate, without significant aortic valvular stenosis. * No aortic regurgitation is present. Pulmonic Valve * The pulmonic valve is not well visualized. Great Vessels * The aortic root is normal size. Pericardium/Pleural * There is no pericardial effusion. Left Ventricular Diastolic Function * Diastolic dysfunction, Grade II (pseudonormalization pattern). MMode 2D Measurements and Calculations IVSd 1.1 cm IVSs 1.2 cm LVIDd 5.0 cm LVIDs 3.4 cm LVPWd 0.96 cm LVPWs 1.9 cm IVS/LVPW 1.2 FS 32.3 % EDV(Teich) 116.5 ml ESV(Teich) 46.1 ml EF(Teich) 60.4 % EDV(cubed) 122.6 ml ESV(cubed) 38.0 ml EF(cubed) 69.0 % % IVS thick 3.4 % % LVPW thick 96.0 % LV mass(C)d 193.5 grams LV mass(C)dI 84.3 grams/m\S\2 LV mass(C)s 190.4 grams LV mass(C)sI 83.0 grams/m\S\2 SV(Teich) 70.4 ml SI(Teich) 30.7 ml/m\S\2 SV(cubed) 84.7 ml SI(cubed) 36.9 ml/m\S\2 ACS 1.3 cm asc Aorta Diam 2.8 cm LVOT diam 2.1 cm LVOT area 3.4 cm\S\2 LVAd ap4 27.5 cm\S\2 LVLd ap4 7.2 cm EDV(MOD-sp4) 86.7 ml EDV(sp4-el) 88.8 ml LVAs ap4 15.7 cm\S\2 LVLs ap4 5.6 cm ESV(MOD-sp4) 34.6 ml ESV(sp4-el) 37.6 ml EF(MOD-sp4) 60.0 % EF(sp4-el) 57.7 % LVAd ap2 29.4 cm\S\2 LVLd ap2 7.2 cm EDV(MOD-sp2) 97.0 ml EDV(sp2-el) 101.4 ml LVAs ap2 16.3 cm\S\2 LVLs ap2 6.5 cm ESV(MOD-sp2) 32.7 ml ESV(sp2-el) 34.8 ml EF(MOD-sp2) 66.3 % EF(sp2-el) 65.7 % LVLd %diff 0.42 % EDV(MOD-bp) 91.3 ml LVLs %diff 14.5 % ESV(MOD-bp) 35.2 ml EF(MOD-bp) 61.4 % SV(MOD-sp4) 52.0 ml SI(MOD-sp4) 22.7 ml/m\S\2 SV(MOD-sp2) 64.3 ml SI(MOD-sp2) 28.0 ml/m\S\2 SV(MOD-bp) 56.1 ml SI(MOD-bp) 24.4 ml/m\S\2 SV(sp4-el) 51.2 ml SI(sp4-el) 22.3 ml/m\S\2 SV(sp2-el) 66.6 ml SI(sp2-el) 29.0 ml/m\S\2 Doppler Measurements and Calculations MV E max genaro 98.7 cm/sec MV A max genaro 72.3 cm/sec MV E/A 1.4 MV dec time 0.16 sec Ao V2 max 102.7 cm/sec Ao max PG 4.2 mmHg Ao max PG (full) 1.8 mmHg IRLANDA(V,A) 2.6 cm\S\2 IRLANDA(V,D) 2.6 cm\S\2 LV V1 max PG 2.4 mmHg LV V1 max 77.1 cm/sec MR max genaro 334.8 cm/sec MR max PG 44.8 mmHg PA V2 max 65.8 cm/sec PA max PG 1.7 mmHg
[2017-10-28 11:12] VITALS: BP 137/83; PULSE 56; TEMP 36.8; O2SAT 97
[2017-10-28] MEDS ORDERED: OPTIRAY 320 IV PRN (11:15)
--- NOTE | 2017-10-28 11:53 | DIAGNOSTIC IMAGING REPORT ---
(CHEST FOR PE) ANGIO WITH CT DOSE: 872.72 mGy.cm HISTORY: 67 years-old Female presents with acute chest pain and concern for pulmonary thromboembolic disease TECHNIQUE: Multiple CTA images of the chest were obtained after the intravenous administration of 94 ml Optiray 320. Coronal and sagittal MIPS were obtained from the axial data set and were submitted for review. A dose lowering technique was utilized adhering to the principles of ALARA. COMPARISON: Chest radiograph 10/27/2017 FINDINGS: CTA: Mild to moderate multichamber cardiac enlargement with coronary arterial calcifications. Calcifications of the mitral annulus are also noted. No pericardial effusion. Thoracic aorta is normal in both course and caliber without aneurysm or dissection. The imaged great vessels are patent. The pulmonary arterial tree is opacified to the level of the subsegmental branches and demonstrates no focal filling defects to suggest pulmonary thromboembolic disease. CT CHEST: No dominant thyroid nodule or pathologic adenopathy. No pneumothorax, pleural effusion or focal airspace consolidation. There is minimal subsegmental bibasilar atelectasis. Mild bilateral bronchial wall thickening. No suspicious pulmonary nodules or masses. Central airways are patent. Prior cholecystectomy. Postoperative changes from prior gastric bypass. Partially imaged low attenuating 1.5 x 1.1 cm lesion of the left adrenal gland suggests probable adenoma. 9 mm low attenuating lesion of the interpolar left kidney suggests renal cyst. Bones appear intact. Multilevel endplate spurring and intervertebral disc space narrowing of the thoracic spine with facet arthrosis. IMPRESSION: 1. No acute aortic pathology or evidence of pulmonary thromboembolic disease. 2. No lobar airspace consolidation or pathologic adenopathy. 3. Mild bilateral bronchial wall thickening suggests bronchitis. 4. Cardiomegaly with coronary arterial disease. 5. Prior cholecystectomy and gastric bypass. The above report was generated using voice recognition software. It may contain grammatical, syntax or spelling errors. Electronically signed by: Piero Simon M.D. 10/28/2017 11:52 AM Dictated Date/Time: 10/28/2017 11:44 AM
[2017-10-28] MEDS ORDERED: NITROFURANTOIN MONOHYDRATE 100 MG CAP PO STA (13:38)
--- NOTE | 2017-10-28 13:40 | Discharge Instructions ---
Discharge Instructions Date of Service October 28, 2017. Admission Reason for Admission: Chest Pain Discharge Discharge Diagnosis / Problem: Atypical chest pain, resolved. Discharge Goals Goal(s): Decrease discomfort, Prevent Disease Progression Activity Recommendations Activity Limitations: per Instructions/Follow-up section . Instructions / Follow-Up Instructions / Follow-Up Please take all medications as instructed. It is recommended that you have an outpatient stress test. This may be ordered for you through your primary care physician (PCP's) office. It is recommended that you see your PCP within one week for follow-up from this hospitalization. Someone will be contacting you from our staff on Sunday with an appointment time. At this visit, please discuss blood pressure, and ensure if any blood pressure readings are taken they are from the upper arm area with an appropriately sized cuff. It was a pleasure taking care of you! Call if you have any questions or problems. You can reach a [facility] hospitalist on duty at [facility] 24 hours a day by calling [phone]. Take care of yourself. Aspen Jamison DO [facility] Hospitalist Current Hospital Diet Patient's current hospital diet: AHA Diet (Heart Healthy) Discharge Diet Recommended Diet: AHA Diet (Heart Healthy) Procedures Procedures Performed: Echocardiogram Pending Studies Studies pending at discharge: yes List of pending studies: Final urine culture results pending at time of discharge. Laboratory Results Lipid Panel Test 10/28/17 05:53 Range/Units Triglycerides Level 66 0-150 mg/dl Cholesterol Level 186 0-200 mg/dl HDL Cholesterol 56 mg/dl Cholesterol/HDL Ratio 3.3 LDL Cholesterol, Calculated 117 mg/dl Medical Emergencies . Who to Call and When: Medical Emergencies: If at any time you feel your situation is an emergency, please call 911 immediately. . Non-Emergent Contact Non-Emergency issues call your: Primary Care Provider . . "Provider Documentation" section prepared by Aspen Jamison. .
--- NOTE | 2017-10-28 13:50 | Discharge Summary ---
Discharge Summary Date of Service October 28, 2017. Discharge Summary Admission Date: October 27, 2017 at 13:18 Discharge Date: October 28, 2017 Discharge Disposition: Home Principal Diagnosis: Atypical chest pain-resolved Acute uncomplicated E coli cystitis Secondary Diagnoses/Problems: FVL mutation h/o post op DVT s/p gastric bypass Anxiety/Depression Hypothyroidism Procedures: TTE: * -- Conclusions -- * The left ventricle is normal in size. * There is mild concentric left ventricular hypertrophy. * The left ventricular wall motion is normal. * Ejection Fraction = 55-60%. * Diastolic dysfunction, Grade II (pseudonormalization pattern). * Aortic valve sclerosis moderate, without significant aortic valvular stenosis. * There is mild to moderate mitral annular calcification with focal calcification of the posterior annulus. * The mitral valve leaflets are mildly thickened * There is no mitral valve stenosis. * There is trace mitral regurgitation. Vaccinations: None. Consultations: None. Pending Studies/Follow-Up: see instructions below. Medication Reconciliation Continued Medications: Albuterol Sulfate (Proair Respiclick) 108 Mcg/Act Aer 2 PUFFS INH DAILY PRN for Wheezing Alprazolam (Xanax) 0.5 Mg Tab 0.5 MG PO QAM Aspirin (Aspirin Ec) 81 Mg Tab 81 MG PO DAILY Bupropion Hcl (Wellbutrin Xl) 150 Mg Tab 1 TAB PO DAILY for 30 Days, #30 TAB Cholecalciferol (Vitamin D) 2,000 Unit Cap 2000 UNIT PO QAM Cyanocobalamin (Cyanocobalamin) 1,000 Mcg/Ml Inj 1 DOSE SC MONTHLY Escitalopram Oxalate (Lexapro) 20 Mg Tab 20 MG PO QAM Fluticasone Propionate (Nasal) (Flonase Allergy Relief) 50 Mcg/Act Spr 2 SPRAYS AMELIA DAILY PRN for SEASONAL ALLERGIES Furosemide (Lasix) 20 Mg Tab 20 MG PO DAILY, TAB Levothyroxine Sodium (Levothyroxine Sodium) 125 Mcg Tab 125 MCG PO DAILY, 3 Refills Magnesium Oxide (Mg Supplement (Magnesium) 250 Mg Tab 250 MG PO DAILY Montelukast Sodium (Singulair) 10 Mg Tab 10 MG PO DAILY PRN for SEASONAL ALLERGIES Admission Information HPI (per Admitting provider): This is a 67-year-old female with past medical history of high blood pressure hyperlipidemia type 2 diabetes, presented plane of chest pain started since yesterday, heart pain feels like muscle spasm with radiation to left shoulder blade and left-sided neck Not associated to any active activity Dizzy spell or lightheadedness No prior history of coronary artery disease No family history of premature CAD, patient is non-smoker In the ER patient was chest pain-free Twelve-lead EKG shows no evidence of any acute ischemic Initial troponin negative Patient will be observed overnight in telemetry for cardiac workup Physical Exam (per Admitting): General Appearance: no apparent distress, + mild distress Head: atraumatic Eyes: normal inspection, PERRL, EOMI, sclerae normal ENT: normal ENT inspection Neck: thyroid normal, no JVD, no carotid bruits, trachea midline Respiratory/Chest: chest non-tender, lungs clear, normal breath sounds, no respiratory distress Cardiovascular: regular rate, rhythm, no JVD, no murmur, normal peripheral pulses Abdomen/GI: normal bowel sounds, non tender, soft Extremities/Musculoskelatal: + pedal edema (Trace bilateral pedal edema) Neurologic/Psych: no motor/sensory deficits, alert, normal mood/affect, oriented x 3 Hospital Course 67-year-old female with no history of CAD is into the emergency room with intermittent chest pain. Each pain episode was lasting 15-30 seconds at a time and was provoked by exertion. The pain did radiate to her shoulder blade and left neck. She reported having an improvement of pain with rest and with on arrival to the ER blood pressure was 141/75 with a pulse of 83. The patient was afebrile and was saturating well on room air physical exam was unremarkable. Chest x-ray revealed mild pulmonary vascular prominence with no evidence of acute cardiopulmonary disease. Lab work was unremarkable. A d- dimer was elevated at 550, BNP was 283. She was admitted to the hospitalist service after receiving a full dose chewable aspirin. EKG revealed sinus rhythm at 82 with no events on telemetry overnight. Serial cardiac enzymes were negative. An echocardiogram was performed revealing a normal ejection fraction 55-60% with grade 2 diastolic dysfunction, aortic valve sclerosis that was moderate without significant aortic valvular stenosis, mild to moderate mitral annular calcification with focal calcification of the posterior annulus and thickened mitral valve leaflets. There were no acute wall motion abnormality seen and no evidence of pulmonary hypertension. As a result of the elevated d-dimer she did undergo a CT PE for concern for blood clot in the in the setting of factor V Leiden mutation with a history of DVT in the past. She decided against undergoing an ultrasound here in the hospital. CT was negative for acute thrombus. At the time of discharge she was tolerating p.o., hemodynamically stable, asymptomatic and mentating and ambulating at baseline. She was discharged in stable condition with close PCP follow-up and recommendations for outpatient stress test at her earliest convenience. Total time spent on discharge = 60 minutes This includes examination of the patient, discharge planning, medication reconciliation, and communication with other providers. Discharge Instructions [facility] [address] [place] [address] Discharge Medical Patient Name: Krystina Bill Unit Number: [id number] Date of : 1950 Patient Status: Admitted Inpatient (obs) Attending Doctor: Aspen Jamison DO DI: Medical v5 Discharge Instructions Date of Service October 28, 2017. Admission Reason for Admission: Chest Pain Discharge Discharge Diagnosis / Problem: Atypical chest pain, resolved. Discharge Goals Goal(s): Decrease discomfort, Prevent Disease Progression Activity Recommendations Activity Limitations: per Instructions/Follow-up section . Instructions / Follow-Up Instructions / Follow-Up Please take all medications as instructed. It is recommended that you have an outpatient stress test. This may be ordered for you through your primary care physician (PCP's) office. It is recommended that you see your PCP within one week for follow-up from this hospitalization. Someone will be contacting you from our staff on Sunday with an appointment time. At this visit, please discuss blood pressure, and ensure if any blood pressure readings are taken they are from the upper arm area with an appropriately sized cuff. It was a pleasure taking care of you! Call if you have any questions or problems. You can reach a [facility] hospitalist on duty at [facility] 24 hours a day by calling [phone]. Take care of yourself. DO [facility] Current Hospital Diet Patient's current hospital diet: AHA Diet (Heart Healthy) Discharge Diet Recommended Diet: AHA Diet (Heart Healthy) Procedures Procedures Performed: Echocardiogram Pending Studies Studies pending at discharge: yes List of pending studies: Final urine culture results pending at time of discharge. Laboratory Results Lipid Panel Test 10/28/17 05:53 Range/Units Triglycerides Level 66 0-150 mg/dl Cholesterol Level 186 0-200 mg/dl HDL Cholesterol 56 mg/dl Cholesterol/HDL Ratio 3.3 LDL Cholesterol, Calculated 117 mg/dl Medical Emergencies . Who to Call and When: Medical Emergencies: If at any time you feel your situation is an emergency, please call 911 immediately. . Non-Emergent Contact Non-Emergency issues call your: Primary Care Provider . . "Provider Documentation" section prepared by Aspen Jamison. . Additional Copies To Jennifer. Longoria E. PA-C
[2017-10-28] MEDS ORDERED: NITR-5 PO (13:51)
[2017-10-28 14:38] VITALS: BP 137/83; PULSE 56; TEMP 36.8; O2SAT 97
== END 2017-10-28 14:50 | disposition home or self-care (01) ==
LOC: C.EDB 11:19 → C.2T 13:18 → ENRESERV 13:42
PROVIDERS: ADMIT Hospitalist; ATTEND Hospitalist
DX: R07.9 Chest pain, unspecified (principal); N30.00 Acute cystitis without hematuria; A04.4 Other intestinal Escherichia coli infections; D68.51 Activated protein C resistance; F41.9 Anxiety disorder, unspecified; E66.01 Morbid (severe) obesity due to excess calories; E11.9 Type 2 diabetes mellitus without complications; E78.5 Hyperlipidemia, unspecified; F32.9 Major depressive disorder, single episode, unspecified; I10 Essential (primary) hypertension; E03.9 Hypothyroidism, unspecified; Z68.43 Body mass index [BMI] 50.0-59.9, adult; Z79.82 Long term (current) use of aspirin; Z88.1 Allergy status to other antibiotic agents; Z88.5 Allergy status to narcotic agent; Z88.7 Allergy status to serum and vaccine; Z86.718 Personal history of other venous thrombosis and embolism; Z98.84 Bariatric surgery status

== ENCOUNTER → 2018-02-11 | Outpatient (CLI) | payer OTHER ==
[~2018-02-11] MED LIST changes: +ALBU18002 INH; -ALBU1AER9 INH; +ALPR-411 PO; -BUPR-83 PO; +BUPRTAB PO; -CEPH500C2 PO; +COEN100C7 PO; -CYAN3INJ SC; +CYNI1000 SC; +FLUT0.15 NAE; -FLUT50SP14 NAE; +FURO20TA PO; -HYDR12.56 PO; -HYDR25TA4 PO; +MAGN250T8 PO; -MGN PO; +ROSU5TAB PO; +TPRSR/25 PO
[2018-02-11 09:36] LABS: HEMATOCRIT 41.5 % (37-47); HEMOGLOBIN 13.2 g/dL (12.0-16.0); MEAN CELL VOLUME 90.2 fL (80-100); MEAN CORPUSCULAR HEMOGLOBIN 28.7 pg (25-34); MEAN CORPUSCULAR HGB CONC 31.8 g/dl (32-36); MEAN PLATELET VOLUME 10.1 fL (7.4-10.4); PLATELET COUNT 194 K/uL (130-400); RED CELL DISTRIBUTION WIDTH CV 14.2 % (11.5-14.5); RED CELL DISTRIBUTION WIDTH SD 46.8 fL (36.4-46.3); WHITE BLOOD COUNT 5.73 K/uL (4.8-10.8)
[2018-02-11 10:08] LABS: ALBUMIN 3.4 gm/dl (3.4-5.0); ALKALINE PHOSPHATASE 142 U/L (45-117); ALT/SGPT 20 U/L (12-78); AST/SGOT 16 U/L (15-37); BLOOD UREA NITROGEN 29 mg/dl (7-18); CALCIUM 8.6 mg/dl (8.5-10.1); CARBON DIOXIDE 32 mmol/L (21-32); CHOLESTEROL 194 mg/dl (0-200); GLUCOSE 91 mg/dl (70-99); LDL CHOLESTEROL CALCULATED 115 mg/dl; POTASSIUM 4.6 mmol/L (3.5-5.1); SODIUM 140 mmol/L (136-145); TOTAL PROTEIN 7.3 gm/dl (6.4-8.2)
== END | disposition home or self-care (01) ==
LOC: C.LAB 08:15
PROVIDERS: ATTEND Physician Assistant
DX: D51.9 Vitamin B12 deficiency anemia, unspecified (principal); E78.5 Hyperlipidemia, unspecified; I10 Essential (primary) hypertension

== ENCOUNTER 2021-09-30 10:31 | Observation (INO) ==
--- NOTE | 2021-09-28 11:15 | Anesthesiology Consultation ---
Date of Service September 28, 2021 Assessment & Plan (1) Encounter for pre-operative examination: Chart Review Chart Review: Acceptable Risk for Surgery (pending preop Covid testing results ) and Patient NOT seen in Pre Admission Testing - Check BSG AM DOS Per nursing assessment 09/28/2021, patient denies any recent travel. No known Covid infection in the past 90 days. Patient is fully vaccinated for Covid. No known Covid positive exposures or Covid related symptoms. Preop Covid testing scheduled 09/28/21= results pending Last seen by cardiology 04/20/2021 = CAD diagnosed via CT demonstrating coronary arterial calcifications. DSE in 2018 - for inducible ischemia. Clinically stable without exertional angina. Dyslipidemiastatin intolerance. Symptomatic PVCs. Hypertensionborderline controlled. Plan is to check labs. Patient agreeable to trial Zetia. Encouraged weight loss and exercise. Follow-up in 1 year. History Surgery Operation Date: 09/30/21 12:20 Proposed Procedures p Left Total Shoulder Arthroplasty - Elver Chahal, Height/Weight Height: 5 ft 3 in Weight: 135.171 kg Allergies Allergy/AdvReac Type Severity Reaction Status Date / Time ketorolac Allergy Unknown Face/hand Verified 09/28/21 08:31 swelling nickel Allergy Unknown Blistering Verified 09/28/21 08:31 Penicillins Allergy Unknown Swelling Verified 09/28/21 08:31 tramadol Allergy Unknown Swelling Verified 09/28/21 08:31 zoster vaccine live Allergy Unknown Swelling Verified 09/28/21 08:31 gabapentin AdvReac Unknown Delirium Verified 09/28/21 08:31 Medications Home Medications Medication Instructions Recorded Confirmed Last Taken alprazolam 0.5 mg tablet 0.25 mg PO UD PRN 03/03/21 09/28/21 Unknown alprazolam 0.5 mg tablet 0.5 mg PO QAM 03/03/21 09/28/21 Unknown amlodipine 5 mg tablet 5 mg PO QAM 03/03/21 09/28/21 Unknown aspirin 81 mg tablet,delayed 81 mg PO QPM 03/03/21 09/28/21 Unknown release azelastine 137 mcg (0.1 %) nasal 2 spray INTRANASAL BID 03/03/21 09/28/21 Unknown spray aerosol bupropion HCl 150 mg 24 hr tablet, 150 mg PO QAM 03/03/21 09/28/21 Unknown extended release (Wellbutrin XL) cholecalciferol (vitamin D3) 25 25 mcg PO QAM 03/03/21 09/28/21 Unknown mcg (1,000 unit) tablet (Vitamin D3) cyanocobalamin (vitamin B-12) 1,000 mcg IM UD 03/03/21 09/28/21 Unknown 1,000 mcg/mL injection solution escitalopram oxalate 20 mg tablet 20 mg PO QAM 03/03/21 09/28/21 Unknown furosemide 20 mg tablet 20 mg PO QAM 03/03/21 09/28/21 Unknown iron,carbonyl 65 mg-vitamin C 125 2 tab PO HS 03/03/21 09/28/21 Unknown mg tablet,delayed release (Vitron-C) levothyroxine 112 mcg tablet 125 mcg PO QAM 03/03/21 09/28/21 Unknown (Synthroid) magnesium 250 mg tablet 250 mg PO QAM 03/03/21 09/28/21 Unknown metoprolol succinate 25 mg 12.5 mg PO QPM 03/03/21 09/28/21 Unknown tablet,extended release 24 hr ezetimibe 10 mg tablet (Zetia) 10 mg PO QAM 09/28/21 09/28/21 Unknown famotidine 40 mg tablet 40 mg PO QAM 09/28/21 09/28/21 Unknown Past Medical History Medical History (Updated 09/28/21 @ 11:21 by Carmita Medina PA-C) Anxiety Coronary artery calcification Noted per CT scan, s/p negative DSE 2017, presumed CAD per cardiology records DDD (degenerative disc disease) DM type 2 (diabetes mellitus, type 2) Diet controlled Factor V Leiden mutation Fibromyalgia GERD (gastroesophageal reflux disease) History of DVT (deep vein thrombosis) LLE (2011) post op, treated w/AC x few months (+ Factor V Leiden mutation) History of uterine cancer 2008 s/p surgery HTN (hypertension) Hyperlipidemia Hypothyroidism Major depression, recurrent Morbid obesity Osteoporosis Panic attacks controlled for the last 3 weeks Sleep apnea "very very mild" No device (unable to tolerate CPAP) Temporomandibular joint disorder (TMJ) Past Family History Family History Grandmother Family history of diabetes mellitus Grandfather Family history of diabetes mellitus Mother Family history of colonic polyps Other No family history of adverse response to anesthesia Past Surgical History Surgical History History of bladder surgery History of cataract surgery both eyes History of cholecystectomy History of colonoscopy History of endoscopy History of gastric bypass History of hysteroscopy Multiple History of knee replacement procedure of left knee History of knee replacement procedure of right knee History of tonsillectomy and adenoidectomy History of tubal ligation History of wisdom tooth extraction S/P complete hysterectomy Social History Smoking Status: Never smoker Do You Dip or Chew Tobacco: No Hx Alcohol Use: No Hx Substance Use: No substance use type: does not use Lab Results Anesthesia Preop Results Results Anesthesia Widget: WBC 5.19 K/uL (4.8-10.8) 09/14/21 Hgb 13.6 g/dL (12.0-16.0) 09/14/21 Hct 41.7 % (37-47) 09/14/21 Plt 202 K/uL (130-400) 09/14/21 Na 139 mmol/L (136-145) 09/14/21 K 4.2 mmol/L (3.5-5.1) 09/14/21 Cl 100 mmol/L (98-107) 09/14/21 CO2 35 mmol/L (21-32) H 09/14/21 BUN 26 mg/dl (6-23) H 09/14/21 Creat 0.65 mg/dl (0.6-1.2) 09/14/21 Glucose Level 99 mg/dl (70-99(Fasting)) 09/14/21 PT 10.5 Seconds (9.0-12.0) 09/14/21 PTT 26.8 Seconds (21.0-31.0) 09/14/21 INR 1.0 (0.9-1.1) 09/14/21 Blood Type A Positive 09/14/21 Antibody Screen NEGATIVE 09/14/21 Testing Electrocardiogram Date: 04/20/21 Findings: + NSR @ (62) Sinus rhythm with premature atrial complexes with aberrant conduction, rate 63 bpm. Cannot rule out anterior infarct (EKG obtained at [facility] cardiology visit, per note "ECG: Normal sinus rhythm, PVC, poor R-wave progression, no significant change when compared to prior study.") Chest X-Ray Date: 03/08/21 No large infiltrates or consolidative lesions. Atherosclerosis. Echocardiogram Date: 08/15/21 EF: 60-65% LV Function: normal RWMA: + none Other Findings: + diastolic dysfunction (Grade II ) LA moderately dilated. RA mildly dilated Moderate mitral annular calcification. Mild MR Estimated RVSP is mildly elevated at 39.6mmHg. Stress Test Date: 11/21/17 Type: DSE DSE negative for inducible ischemia. LVEF 55 to 60%. No regional wall motion abnormality. Grade 1 diastolic dysfunction. PASP 35 mmHg. 85% MPHR. Mild AV sclerosis. Moderate mitral annular calcification. Mild MR. Mild TR.
--- NOTE | 2021-09-29 16:27 | History & Physical Report ---
Date of Service September 29, 2021 Assessment & Plan (1) Osteoarthritis, shoulder: We will proceed with a left reverse shoulder arthroplasty. Postoperatively she will be placed in a sling and kept overnight in the hospital for postoperative medical management. She plans to [facility] upon discharge. History of Present Illness Chief Complaint: Osteoarthritis of the left shoulder. Primary Care Provider: Mary Hernandez Bill Flaherty is a pleasant 71-year-old female who is been dealing with chronic increasing left shoulder pain. X-rays and clinical examination have been diagnostic for advanced osteoarthritis of the left shoulder. After failing conservative treatment, she has elected proceed with a left reverse shoulder arthroplasty. She does have a history of a knee replacement with a postoperative infection. She had a sed rate and CRP which were negative. Allergies Allergy/AdvReac Type Severity Reaction Status Date / Time ketorolac Allergy Unknown Face/hand Verified 09/28/21 08:31 swelling nickel Allergy Unknown Blistering Verified 09/28/21 08:31 Penicillins Allergy Unknown Swelling Verified 09/28/21 08:31 tramadol Allergy Unknown Swelling Verified 09/28/21 08:31 zoster vaccine live Allergy Unknown Swelling Verified 09/28/21 08:31 gabapentin AdvReac Unknown Delirium Verified 09/28/21 08:31 Home Medications Medication Instructions Recorded Confirmed Type alprazolam 0.5 mg tablet 0.25 mg PO UD PRN 03/03/21 09/28/21 History alprazolam 0.5 mg tablet 0.5 mg PO QAM 03/03/21 09/28/21 History amlodipine 5 mg tablet 5 mg PO QAM 03/03/21 09/28/21 History aspirin 81 mg tablet,delayed 81 mg PO QPM 03/03/21 09/28/21 History release azelastine 137 mcg (0.1 %) nasal 2 spray INTRANASAL BID 03/03/21 09/28/21 History spray aerosol bupropion HCl 150 mg 24 hr tablet, 150 mg PO QAM 03/03/21 09/28/21 History extended release (Wellbutrin XL) cholecalciferol (vitamin D3) 25 25 mcg PO QAM 03/03/21 09/28/21 History mcg (1,000 unit) tablet (Vitamin D3) cyanocobalamin (vitamin B-12) 1,000 mcg IM UD 03/03/21 09/28/21 History 1,000 mcg/mL injection solution escitalopram oxalate 20 mg tablet 20 mg PO QAM 03/03/21 09/28/21 History furosemide 20 mg tablet 20 mg PO QAM 03/03/21 09/28/21 History iron,carbonyl 65 mg-vitamin C 125 2 tab PO HS 03/03/21 09/28/21 History mg tablet,delayed release (Vitron-C) levothyroxine 112 mcg tablet 125 mcg PO QAM 03/03/21 09/28/21 History (Synthroid) magnesium 250 mg tablet 250 mg PO QAM 03/03/21 09/28/21 History metoprolol succinate 25 mg 12.5 mg PO QPM 03/03/21 09/28/21 History tablet,extended release 24 hr ezetimibe 10 mg tablet (Zetia) 10 mg PO QAM 09/28/21 09/28/21 History famotidine 40 mg tablet 40 mg PO QAM 09/28/21 09/28/21 History Past Med/Surg History Medical History Anxiety Coronary artery calcification Noted per CT scan, s/p negative DSE 2017, presumed CAD per cardiology records DDD (degenerative disc disease) DM type 2 (diabetes mellitus, type 2) Diet controlled Factor V Leiden mutation Fibromyalgia GERD (gastroesophageal reflux disease) History of DVT (deep vein thrombosis) LLE (2011) post op, treated w/AC x few months (+ Factor V Leiden mutation) History of uterine cancer 2008 s/p surgery HTN (hypertension) Hyperlipidemia Hypothyroidism Major depression, recurrent Morbid obesity Osteoporosis Panic attacks controlled for the last 3 weeks Sleep apnea "very very mild" No device (unable to tolerate CPAP) Temporomandibular joint disorder (TMJ) Surgical History History of bladder surgery History of cataract surgery both eyes History of cholecystectomy History of colonoscopy History of endoscopy History of gastric bypass History of hysteroscopy Multiple History of knee replacement procedure of left knee History of knee replacement procedure of right knee History of tonsillectomy and adenoidectomy History of tubal ligation History of wisdom tooth extraction S/P complete hysterectomy Family History Grandmother Family history of diabetes mellitus Grandfather Family history of diabetes mellitus Mother Family history of colonic polyps Other No family history of adverse response to anesthesia Social History Smoking Status: Never smoker Second Hand Exposure: No; Hx Alcohol Use: No Hx Substance Use: No Preferred Language: Amharic Communication Ability: Effective Game Programer Required: No Beliefs That Will Affect Care: None and Nondenominational Nondenominational Beliefs: [employer] Current Living Situation: Other Current Living Situation Comment: EX Feels Safe at Home: Yes Assistive Devices: Glasses Review of Systems All systems reviewed & are unremarkable except as noted in HPI & below. Physical Exam On physical examination of the left shoulder, she has only about 80 degrees of forward elevation and 70 degrees of abduction. She has 5 5 motion with external rotation and 4-5 motion with the full can testing. She has pain over the glenohumeral joint line. Constitutional WD/WN, vitals as above Eyes PERRL, conjunctivae normal, anicteric sclerae ENMT external ear and nose normal, oropharynx normal Neck trachea midline, no thyromegaly Respiratory normal respiratory effort Cardiovascular RRR, no murmur, no edema Gastrointestinal (Abdomen) normal bowel sounds, soft, nontender, no hepatosplenomegaly Psychiatric A+Ox3, euthymic affect Results & Data Results & Data Laboratory Results . Diagnostic Findings X-rays of the left shoulder show advanced osteoarthritis with joint space narrowing, osteophyte formation, and [id number] articulation. PG Care Time/CCT Total # of Minutes Spent Total Time Spent with Patient: Total time spent is greater than 50% in coordination of care (as documented) at patient's floor/unit and/or counseling patient: Coding Level of Care Code None Diagnoses Osteoarthritis, shoulder M19.019
[~2021-09-30 10:31] MED LIST changes: +ACETAMINOPHEN 500 MG TAB PO SCH; -ALBU18002 INH; -ALPR-411 PO; -ALPR0.5T PO; -ASPI81TA28 PO; +BUPIVACAINE 0.5 % 5 MG/1 ML PF 10ML VIAL ONE; -BUPRTAB PO; -CHOL200010 PO; -COEN100C7 PO; -CYNI1000 SC; -ESCI1TAB10 PO; +FAMOTIDINE 20 MG TAB PO SCH; -FLUT0.15 NAE; -FURO20TA PO; +GABAPENTIN 300 MG CAP PO SCH; +Ketorolac (*for OR use only*) 30 MG, dexAMETHasone 4 MG, KETAMINE HCL (**OR use only) 1... INFIL SCH; -LEVO125T5 PO; +LR 15ML/HR IV SCH; +LR 60ML/HR IV SCH; -MAGN250T8 PO; -MONT1TAB3 PO; -ROSU5TAB PO; -TPRSR/25 PO; +TRANEXAMIC ACID 1,000 MG **IV Intra-op IV SCH; +TRANEXAMIC ACID 1,000 MG **IV Pre-op IV SCH; +dexAMETHasone 4 MG TAB PO SCH
[2021-09-30] MEDS ORDERED: MIDAZOLAM HCL 1 MG/ML 2ML VIAL ONE (12:40)
[2021-09-30] MEDS ORDERED: fentaNYL citrate 100 MCG/2 ML VIAL ONE (12:40)
--- NOTE | 2021-09-30 12:48 | History & Physical Bridge Note ---
Date of Service September 30, 2021 History & Physical Bridge Note I have examined the patient, reviewed the History & Physical and in the interval since the performance of the History & Physical I have noted the following changes of clinical significance: no changes noted
[2021-09-30] MEDS ORDERED: ATROPINE SULFATE 0.1 MG/ML 10ML SYR IV PRN (12:54)
[2021-09-30] MEDS ORDERED: fentaNYL citrate 100 MCG/2 ML VIAL IV PRN (12:54)
[2021-09-30] MEDS ORDERED: ONDANSETRON INJ 2 MG/ML 2 ML VIAL IV PRN ×2 (12:54→16:32)
[2021-09-30] MEDS ORDERED: ePHEDrine sulfate 50 MG/ML AMP IV PRN (12:54)
[2021-09-30] MEDS ORDERED: ceFAZolin 3000MG/72.5 ML BAG IV ONE (12:56)
[2021-09-30] MEDS ORDERED: ORTHO JOINT ANESTHETIC ONE (13:11)
[2021-09-30] MEDS ORDERED: Nursing to Pharmacy Communication SCH (13:15)
[2021-09-30] MEDS ORDERED: ONDANSETRON INJ 2 MG/ML 2 ML VIAL ONE (13:15)
[2021-09-30] MEDS ORDERED: PROPOFOL IV EMULSION 10 MG/ML 20 ML VIAL IV ONE (13:15)
[2021-09-30] MEDS ORDERED: ePHEDrine sulfate 50 MG/ML AMP ONE (14:38)
[2021-09-30] MEDS ORDERED: PHENYLEPHRINE 100MCG/ML 5ML SYR ONE (14:57)
--- NOTE | 2021-09-30 15:24 | Operative Report ---
PG Post Operative Report Pre & Post Diagnosis Operation Date: 09/30/21 13:15 Pre-Op Diagnosis: Degenerative Joint Disease Left Shoulder with tendinopathy long head of the biceps tendon Post-Op Diagnosis: Degenerative Joint Disease Left Shoulder with tendinopathy long head of the biceps tendon I identified the patient and participated in the time-out.: Yes Procedure Operation Date: 09/30/21 13:15 Actual Procedures p Left Reverse Total Shoulder Arthroplasty, Uncemented with open biceps tenodesis as a distinct and separate procedure (modifier 59) - Elver Chahal DO Surgeon Elver Chahal, Flower Cheniller Elver Carter PAC Estimated Blood Loss 250 Findings Consistent with Post-Op Diagnosis Specimens Left humeral head Complications none Disposition Disposition: Recovery Room Indications Krystina is a pleasant 71-year-old female has been ill with chronic worsening left shoulder pain. X-rays and clinical examination were diagnostic for advanced osteoarthritis of the left shoulder. After failing conservative treatment, she elected proceed with a left reverse shoulder arthroplasty. Description of Procedure A CPT code modifier 22: Krystina has a BMI of 52.2. A lot of this weight was gaby ed in her shoulders. This procedure took about 50% longer than a standard shoulder replacement due to her size. A CPT code modifier 59: The long head of the biceps tendon was enlarged and inflamed consistent with tendinopathy. A tenodesis was opted. This was a separate and distinct portion of the procedure. For these reasons, a CPT code modifier 59 will be added to this case. Implants used: I used a [employer]omet Comprehensive reverse total shoulder arthroplasty system with a size 8 press fit micro humeral stem, a +5 humeral tray and a +3 retentive humeral bearing, a 25 mm small augment baseplate with a 6.5 mm central screw and superior and inferior locking screws, and a size 40 mm TiVanium eccentric glenosphere. Krystina arrived at [facility] for the above procedure. She was seen in the preoperative holding area and the operative extremity was identified and signed. She was given a preoperative antibiotic, TXA, and an interscalene nerve block. She was taken back to the operating room, laid on table in supine position, and put under general anesthesia. She was then put into the beachchair position. The shoulder was then prepped and draped in sterile fashion. A timeout was done and the patient and the operative extremity was properly identified. A deltopectoral approach was used. Dissection was taken down through the fascia and the deltoid was retracted laterally and the conjoined tendon was retracted medially. The anterior shoulder was exposed. The biceps groove was opened up and the biceps tendon was examined extensively. The biceps tendon demonstrated enlargement and inflammatory changes consistent with longstanding inflammation in the context of osteoarthritis and cuff arthropathy. The long head of the biceps tendon was then tenodesed to the upper border of the pectoralis major. This was a separate and distinct portion of the procedure. The subscapularis was then directly released off the lesser tuberosity with a peel technique. The inferior capsule was released and the humeral head was dislocated. A canal finding reamer was sent down the center of the humeral canal. Sequential reaming up to a size 8 reamer was done. Off that reamer, a proximal humeral resection guide was placed. The proximal humerus was resected at 135 of inclination and 25 of retroversion. Osteophytes were then removed and the glenoid was exposed. Time was spent doing a complete capsular and labral release. The glenoid guide was then placed in the inferior aspect of the glenoid. A 3.2 mm Steinmann pin was then placed into the glenoid vault at 10 of inclination. The glenoid baseplate was then reamed. The final size 25 mm small augment baseplate was then impacted in the place. A 6.5 mm central screw was then placed followed by superior and inferior locking screws. A 40 eccentric glenosphere was then impacted into place. Surrounding soft tissues were then injected with 100 cc an orthopedic pain control cocktail. The proximal humerus was then exposed. Sequential broaching of the humerus up to a size 8 broach was done. Off that broach a +8 retentive humeral tray was trialed. The shoulder was then reduced, brought through a full range of motion, and felt to be stable. The shoulder was then dislocated and the broach was removed. The final size 8 micro press-fit humeral stem was then impacted into place. A +3 retentive humeral bearing was then snapped onto a +5 humeral tray. The humeral tray was then impacted onto the humeral stem. The shoulder was once again reduced, brou ght through a full range of motion, and felt to be stable. The subscapularis was not able to be repaired. A dilute betadyne lavage was then done for 3 minutes. The joint was then irrigated with normal saline solution. Hemostasis was obtained. The interval was closed with 2-0 Vicryl suture. The skin was then closed with 2-0 Vicryl and payam. A Silverlon dressing was placed and the arm was rested in a regular arm sling. She was then extubated and transferred to a hospital bed. She taken to the postanesthesia care unit in stable condition. She tolerated the procedure well. Elver Carter PA-C, was present for the entire procedure. He was critical for patient positioning, prepping, draping, retraction exposure, wound closure and application of sterile dressing. I attest to the content of the Intraoperative Record and any orders documented therein. Any exceptions are noted below.
--- NOTE | 2021-09-30 16:23 | XRay Report ---
LEFT SHOULDER 2 VIEWS HISTORY: Post shoulder surgery COMPARISON: None. FINDINGS: There is no fracture or dislocation. There is a reverse left total shoulder arthroplasty. H ardware appears intact. Skin payam are in place. No radiopaque foreign bodies. IMPRESSION: Status post reverse left total shoulder arthroplasty. No evidence for hardware complication. ACT 112: Negative or not required by law. Electronically signed by: Seven Jean-Baptiste M.D. 09/30/2021 4:22 PM
[2021-09-30] MEDS ORDERED: NALOXONE HCL 0.4 MG/1 ML VIAL/CARP IV PRN (16:32)
[2021-09-30] MEDS ORDERED: MAGNESIUM HYDROXIDE SUSP 30 ML UDC PO PRN (16:32)
[2021-09-30] MEDS ORDERED: ALPRAZolam 0.25 MG TABLET PO PRN (16:32)
[2021-09-30] MEDS ORDERED: METOCLOPRAMIDE HCL INJ 5 MG/ML 2 ML VIAL IV PRN (16:32)
[2021-09-30] MEDS ORDERED: HYDROmorphone INJ 0.5 MG/0.5 ML SYR IV PRN (16:32)
[2021-09-30] MEDS ORDERED: oxyCODONE HCL IR 5 MG TAB (IMMEDIATE RELEASE) PO PRN (16:32)
[2021-09-30] MEDS ORDERED: bisacodyL 10 MG SUPP PR PRN (16:32)
[2021-09-30] MEDS: SODIUM CHLORIDE 0.9% 1000ML 1,000 ML IV SCH (16:55)
[2021-09-30] MEDS ORDERED: KETOROLAC TROMETHAMINE 15 MG/ML VIAL IV PRN (17:24)
--- NOTE | 2021-09-30 17:38 | Anesthesiology Progress Note ---
Date of Service September 30, 2021 Anesthesia Post Procedure Vital Signs Vital Signs: Temp Pulse Pulse Resp BP Pulse Ox 09/30/21 17:00 36.6 C 85 16 109/69 95 09/30/21 16:47 36.5 C 91 H 16 114/61 94 09/30/21 16:15 91 H 16 133/61 93 09/30/21 16:05 36.4 C L 88 12 128/64 94 09/30/21 15:55 93 H 14 125/66 94 09/30/21 15:45 92 H 14 119/61 94 09/30/21 15:38 36.3 C L 91 H 16 129/63 96 09/30/21 11:02 36.9 C 80 20 144/74 H 95 Pain Intensity Left Shoulder: Pain Intensity: 0 Transfer of Care Handoff Completed per policy Notes Mental Status: alert / awake / arousable and participated in evaluation Patient Amnestic to Procedure: Yes Nausea / Vomiting: adequately controlled Pain: adequately controlled Airway Patency, RR, SpO2: stable & adequate BP & HR: stable & adequate Hydration State: stable & adequate Anesthetic Complications: no major complications apparent and Pt Satisfied with anesthetic care
[2021-09-30] MEDS ORDERED: ASPIRIN 81 MG ECTAB PO SCH (21:00)
[2021-09-30] MEDS ORDERED: METOPROLOL SUCC 25MG EXT REL TAB PO SCH (21:00)
[2021-09-30] MEDS ORDERED: SENNA 8.6 MG TAB PO SCH (21:00)
[2021-09-30] MEDS: AZELASTINE HCL 0.1% NASAL 200 SPRAYS/27,400 MCG BTL NAE SCH (21:02)
[2021-09-30] MEDS: DOCUSATE SODIUM 100 MG CAP PO SCH (21:03)
[2021-09-30] MEDS: ACETAMINOPHEN 500 MG TAB PO SCH (21:05)
[2021-09-30] MEDS: ceFAZolin 2000MG 2,000 MG/15 ML SYR IV SCH (21:10)
[2021-10-01] MEDS: SODIUM CHLORIDE 0.9% 1000ML 1,000 ML IV SCH (03:21)
[2021-10-01] MEDS: ceFAZolin 2000MG 2,000 MG/15 ML SYR IV SCH (05:44)
[2021-10-01] MEDS: ACETAMINOPHEN 500 MG TAB PO SCH (05:44)
[2021-10-01] MEDS ORDERED: LEVOTHYROXINE SODIUM 125 MCG TABLET PO SCH (06:30)
[2021-10-01] MEDS ORDERED: dexAMETHasone 4 MG TAB PO SCH (08:00)
--- NOTE | 2021-10-01 08:28 | Orthopedic Progress Note ---
Date of Service October 01, 2021 Assessment & Plan (1) Status post reverse total replacement of left shoulder: Overall she is doing fairly well. She denies any much pain in the left shoulder. She will be seen by physical therapy today for ambulation and range of motion exercises. She can be discharged home later today. She will follow- up with orthopedics in 2 weeks. Pal Barrett was seen and examined at bedside this morning. Overall she is doing very well. She denies any pain in the left shoulder. She was able to get some sleep last night and has no complaints. Review of Systems All systems reviewed & are unremarkable except as noted in HPI & below. Physical Exam Physical examination of the left shoulder, she is wearing her sling as instructed. Her radial, median, and ulnar nerves are checked intact at her wrist. Her axillary nerve was not checked yet. Results & Data Results & Data Laboratory Results . Diagnostic Findings Postoperative x-rays of the left shoulder show the prosthesis to be in anatomic alignment without any evidence of fracture, screws, or loosening. PG Care Time/CCT Total # of Minutes Spent Total Time Spent with Patient: Total time spent is greater than 50% in coordination of care (as documented) at patient's floor/unit and/or counseling patient: Coding Level of Care Code 83555 Post Operative Follow-Up Diagnoses Status post reverse total replacement of left shoulder Z96.612
--- NOTE | 2021-10-01 08:30 | Discharge Summary ---
Date of Service October 01, 2021 Admission HPI (Per Admitting) Krystina is a pleasant 71-year-old female who is been dealing with chronic increasing left shoulder pain. X-rays and clinical examination have been diagnostic for advanced osteoarthritis of the left shoulder. After failing conservative treatment, she has elected proceed with a left reverse shoulder arthroplasty. She does have a history of a knee replacement with a postoperative infection. She had a sed rate and CRP which were negative. Admission Exam (Per Admitting) On physical examination of the left shoulder, she has only about 80 degrees of forward elevation and 70 degrees of abduction. She has 5 5 motion with external rotation and 4-5 motion with the full can testing. She has pain over the glenohumeral joint line. Principal Diagnosis Same as "Discharge Diagnosis" noted below under Discharge Instructions. Discharge Exam Physical examination of the left shoulder, she is wearing her sling as instructed. Her radial, median, and ulnar nerves are checked intact at her wrist. Her axillary nerve was not checked yet. Discharge Data Procedures Performed Operation Date: 09/30/21 13:15 Actual Procedures p Left Reverse Total Shoulder Arthroplasty, Uncemented with Open Biceps Tenodesis (Left) - Elver Chahal DO Ordered Studies 09/30/21 05:00 US - OR guided needle placemen Routine Hospital Course (1) Status post reverse total replacement of left shoulder: On September 30, 2021 Krystina arrived to [facility] and underwent a left reverse shoulder arthroplasty without complication. She had a general anesthetic and a left interscalene nerve block. Postoperatively she was placed in a sling and transferred to the general orthopedic floors. Her hospital course was uneventful. On postop day #1 her vital signs were stable and her pain was well controlled. She was able to participate well with physical therapy doing ambulation and range of motion exercises. She was then discharged home. She was given 6 weeks of oral Keflex due to to a possible chronic infection in her left knee replacement. She will follow with orthopedics in 2 weeks. PG Care Time/CCT Total # of Minutes Spent Total Time Spent with Patient: Total time spent is greater than 50% in coordination of care (as documented) at patient's floor/unit and/or counseling patient: Discharge Plan Discharge Items Patient Disposition: Home - Home Health Services Reason For Visit: POST-OP Discharge Diagnosis: Left reverse shoulder replacement Activity: Resume your previous activity Non-emergency contact: Surgeon Call non-emergency contact if: your wound has increased redness and your wound has increased drainage Follow-up/Referrals: Mary Khan CRNP [Primary Care Provider] - Diet: Regular Addtl Attending Provider Instructions: Activity and Therapy Recommendations: * If you are using [facility] then therapy will be provided at your home until they feel you have accomplished all of your goals. * If you are using [facility] then Physical Therapy will be provided until they feel you are ready to start Outpatient Physical Therapy. * If you are not using home therapy then Outpatient Physical Therapy should start about 3-5 days from your day of surgery. Therapy will last about 8-12 weeks * Wear your sling for 3 weeks, unless otherwise instructed. You may remove your sling to shower and to dress, but otherwise, you should be in your sling at all times, including while sleeping * The shoulder replacement is very stable and you can use your hand while in the sling * You were shown a series of exercises in the hospital. Do these exercises daily including the exercises you were shown in physical therapy. Medications: * Narcotic You will likely be sent home from the hospital with a prescription for the narcotic pain medication that worked best throughout your stay. * Other medications may be prescribed for specific circumstances. If you have any questions, please call the office at . * Resume previous home medications unless otherwise instructed Dressing Care: Leave the Silverlon dressing in place for 7 days. After 7 days you may remove the dressing. If the incision is not draining then you may leave the payam open to air. If there is a little bit of drainage or if the payam are getting stuck on your clothing then cover the incision with a dry dressing. The payam will be removed at your 2 week follow-up appointment. Showering: You may shower with the Silverlon dressing in place. Do not let the shower spray hit the dressing directly. Pat the Silverlon dressing dry. If the dressing becomes wet underneath, then simply remove the dressing. Keep the incision dry until you are 7 days out from the day of surgery. After 7 days you may remove the Silverlon dressing and shower with the payam exposed. Let soapy water run over the payam and pat them dry. Do not scrub or soak the incision. Things To Watch For: * Drainage from the incision site that occurs more than one week after your surgery. * Increased redness at the incision site. * Fever above 102 degrees Fahrenheit. * Unusual chest pain or shortness of breath. * Call [facility] at with any of the above problems Follow-Up Visit: Follow-up with Dr. Chahal's PA (Elver Carter) 2-3 weeks after your day of surgery. He will remove your payam and answer any questions. If you have any additional questions or concerns, Dr Chahal is usually in the office at the same time and will be available An appointment was probably scheduled when you signed-up for surgery in the office. If you have any questions call More detailed instructions as well as Frequently Asked Questions were provided in a folder by our office when you signed-up for surgery. Please review these instructions when you get home. If you have any further questions or concerns, please feel free to call the office at [phone] Pending Studies at Discharge: No Stand-Alone Forms: My [facility] Medications and DC Order Prescriptions: New cephalexin 500 mg capsule 500 mg PO QID 42 Days Qty: 168 RF: 0 Continued ezetimibe [Zetia] 10 mg Tablet 10 mg PO QAM RF: 0 famotidine 40 mg Tablet 40 mg PO QAM RF: 0 amlodipine 5 mg Tablet 5 mg PO QAM RF: 0 aspirin [Aspir-81] 81 mg Tablet,Delayed Release (Dr/Ec) 81 mg PO QPM RF: 0 alprazolam 0.5 mg Tablet 0.5 mg PO QAM RF: 0 alprazolam 0.5 mg Tablet 0.25 mg PO UD PRN (Reason: Anxiety) RF: 0 cyanocobalamin (vitamin B-12) 1,000 mcg/mL Solution 1,000 mcg IM UD RF: 0 magnesium 250 mg Tablet 250 mg PO QAM RF: 0 furosemide 20 mg Tablet 20 mg PO QAM RF: 0 metoprolol succinate 25 mg Tablet Extended Release 24 Hr 12.5 mg PO QPM RF: 0 azelastine 137 mcg (0.1 %) Aerosol,Rush 2 spray INTRANASAL BID RF: 0 levothyroxine [Synthroid] 112 mcg Tablet 125 mcg PO QAM RF: 0 escitalopram oxalate 20 mg Tablet 20 mg PO QAM RF: 0 bupropion HCl [Wellbutrin XL] 150 mg Tablet Extended Release 24 Hr 150 mg PO QAM RF: 0 cholecalciferol (vitamin D3) [Vitamin D3] 25 mcg (1,000 unit) Tablet 25 mcg PO QAM RF: 0 Vitron-C 65 mg iron- 125 mg Tablet,Delayed Release (Dr/Ec) 2 tab PO HS RF: 0 Discharge Orders: Discharge Order (Routine); Ordered 10/01/21 Ordered By: Elver Chahal Admission Data Admit Date/Time: 09/30/21 15:43 Attending Provider: Elver Chahal Admit Provider: Elver Chahal Primary Care Provider: Mary Khan
[2021-10-01] MEDS: AZELASTINE HCL 0.1% NASAL 200 SPRAYS/27,400 MCG BTL NAE SCH (08:32)
[2021-10-01] MEDS: DOCUSATE SODIUM 100 MG CAP PO SCH (08:33)
[2021-10-01] MEDS ORDERED: FAMOTIDINE 40 MG TABLET PO SCH (09:00)
[2021-10-01] MEDS ORDERED: buPROPion XL 150 MG TABCR PO SCH (09:00)
[2021-10-01] MEDS ORDERED: MULTIVITAMIN TAB PO SCH (09:00)
[2021-10-01] MEDS ORDERED: ALPRAZolam 0.5 MG TABLET PO SCH (09:00)
[2021-10-01] MEDS ORDERED: amLODIPine BESYLATE 5 MG TAB PO SCH (09:00)
[2021-10-01] MEDS ORDERED: EZETIMIBE 10 MG TABLET PO SCH (09:00)
[2021-10-01] MEDS ORDERED: MAGNESIUM OXIDE 400 MG TAB PO SCH (09:00)
[2021-10-01] MEDS ORDERED: FUROSEMIDE 20 MG TAB PO SCH (09:00)
[2021-10-01] MEDS ORDERED: ESCITALOPRAM OXALATE 20 MG TAB PO SCH (09:00)
== END 2021-10-01 12:58 | disposition home or self-care (01) ==
LOC: 3E 10:31 → ASU 10:31